=== PATIENT | male | born 2005 | race Hispanic/Latino ===

== ENCOUNTER 2023-12-06 15:54 | Emergency (ER) | payer MEDICAID, OTHER, SELFPAY ==
[2023-12-06 16:26] VITALS: BP 135/81; PULSE 105; RESP 20; TEMP 37.4; O2SAT 96; BMI 36.6
--- NOTE | 2023-12-06 16:45 | ED_ITS ---
<Statement entered by Brad Sterling DO - 12/07/23 07:03> Dr. Sterling: I was immediately available in the department for consultation. Documentation has been reviewed. I agree with assessment and plan. HPI - URI/Sore Throat General Chief Complaint: Upper Respiratory Symptoms Stated Complaint: bronchitis t-4 Time Seen by Provider: 12/06/23 16:44 Source: patient Mode of arrival: Ambulatory History of Present Illness HPI Narrative: 18-year-old male with no reported past medical history presents to the ED with 4 days of a productive cough, green sputum. Patient states that he has several members in his family at home with bronchitis or pneumonia. Patient also complains of overall myalgias. No fever, chills, chest pain, shortness of breath, sore throat, rhinorrhea, nausea, vomiting, abdominal pain. Related Data Previous Rx's Medication Instructions Recorded albuterol sulfate 90 mcg/actuation 2 puff inhalation Q4-6H PRN 12/06/23 aerosol inhaler shortness of breath or wheezing #6.7 grams azithromycin 250 mg tablet See Rx Instructions PO .COMPLEX #6 12/06/23 (Zithromax Z-Sony) tabs Allergies Allergy/AdvReac Type Severity Reaction Status Date / Time No Known Drug Allergies Allergy Verified 12/06/23 16:26 Review of Systems Constitutional Constitutional: Reports body ache(s), Denies chills, Denies fatigue, Denies fever(s), Denies frequent falls, Denies lethargy and Denies weakness Eyes Eyes: Denies change in vision, Denies eye discharge, Denies irritation and Denies loss of vision ENT Ears, Nose, Mouth, and Throat: Denies change in voice, Denies dizziness, Denies neck pain, Denies sore throat and Denies throat swelling Cardiovascular Cardiovascular: Denies chest pain, Denies irregular heart rhythm, Denies lightheadedness, Denies palpitations, Denies dyspnea, Denies dyspnea on exertion and Denies orthopnea Respiratory Respiratory: Reports cough, Denies dyspnea, Denies dyspnea on exertion and Denies wheezing Gastrointestinal Gastrointestinal: Denies abdominal pain, Denies change in bowel habits, Denies diarrhea, Denies nausea and Denies vomiting Musculoskeletal Musculoskeletal: Denies neck pain and Denies numbness Integumentary/Breasts Skin/Breast: Denies pruritus, Denies erythema, Denies rash and Denies wounds Neurologic Neurologic: Denies behavioral changes, Denies confusion, Denies dizziness, Denies frequent falls, Denies loss of vision, Denies numbness and Denies weakness Psychiatric Psychiatric: Denies anxiety, Denies behavioral changes, Denies confusion, Denies depression, Denies homicidal ideation and Denies suicidal ideation Endocrine Endocrine: Denies fatigue, Denies flushing and Denies palpitations Hematologic/Lymphatic Hematologic/Lymphatic: Denies easy bruising Allergic/Immunologic Allergic/Immunologic: Denies urticaria, Denies throat swelling and Denies wheezing Patient History Social History Smoking Status: Never smoker Smoking Status: Never smoker Substance Use Type: does not use Exam Narrative Exam Narrative: Const General:?cooperative, healthy appearing and comfortable [facility] Head:?normal to inspection Ears:?hearing grossly normal bilaterally Nose:?external nose normal Face and sinus:?normal facial exam and sinuses nontender Mouth:?oral mucosae normal Throat:?posterior oropharynx normal Eyes General:?appearance normal, both eyes and all related structures Neck Neck:?normal visual inspection and no lymphadenopathy noted Resp Effort & Inspection:?normal respiratory effort Auscultation:? Generalized wheezes, coarse crackles Cardio Rate:? Tachycardic Rhythm:?regular rhythm Neuro General:?patient alert, patient awake and patient oriented x3 Initial Vital Signs Initial Vital Signs: Vital Signs Temperature 99.4 F 12/06/23 16:26 Pulse Rate 105 H 12/06/23 16:26 Respiratory Rate 20 12/06/23 16:26 Blood Pressure 135/81 12/06/23 16:26 Pulse Oximetry 96 12/06/23 16:26 Oxygen Delivery Method Room Air 12/06/23 16:26 Course Orders Ordered: ED Orders 12/06/23 17:03 CXR [XR chest 2V] Stat 12/06/23 17:05 Covid-19 + FLU A/B + RSV - PCR Stat 12/06/23 17:28 RT Consult Eval and Treat NOW Discontinued Medications Albuterol (Albuterol 2.5 Mg/3 Ml Neb (Adult)) 2.5 mg INH [id number] PRN PRN Reason: Shortness Of Breath Last Admin: 12/06/23 17:49 Dose: 2.5 mg Documented By: SAT Ibuprofen (Ibuprofen 400 Mg Tablet) 800 mg PO NOW ONE Stop: 12/06/23 17:07 Last Admin: 12/06/23 17:16 Dose: 800 mg Documented By: KATHERINE Vital Signs Vital signs: Vital Signs - 8 hr 12/06/23 16:26 12/06/23 18:37 Temperature 99.4 F 98.6 F Pulse Rate 105 H 100 H Respiratory Rate 20 22 Blood Pressure 135/81 130/85 Pulse Oximetry 96 97 Oxygen Delivery Method Room Air Room Air MDM - URI/Sore Throat Lab Data Labs: Lab Results 12/06/23 Range/Units 17:05 SARS-CoV-2 (PCR) Negative (Negative) Influenza A (RT-PCR) Flu a negative (NEGATIVE) Influenza B (RT-PCR) Flu b negative (NEGATIVE) RSV (PCR) Negative (Negative) MDM Narrative Medical decision making narrative: 18-year-old male with no reported past medical history presents to the ED with 4 days of a productive cough, green sputum. Concern for URI versus pneumonia versus bronchitis versus other. Will obtain respiratory panel, chest x-ray. Ordered a breathing treatment, Tylenol. Will re-evaluate. Chest x-ray shows possible bilateral bibasilar pneumonia versus atelectasis. Will treat for pneumonia. Patient's wheezing improved with the breathing treatment. Also prescribed albuterol. Recommend ibuprofen, Tylenol for aches and pains, fever. ED return precautions discussed with patient. Patient verbalized understanding. Medical records reviewed: Yes Discharge Plan Departure Patient Disposition: Home Clinical Impression: Pneumonia Qualifiers: Pneumonia type: due to unspecified organism Laterality: bilateral Lung location: unspecified part of lung Qualified Code(s): J18.9 - Pneumonia, unspecified organism Instructions: DI for Pneumonia -- Adult Activity Restrictions/Additional Instructions: Were evaluated in the ED today for cough and congestion. Your chest x-ray shows possible pneumonia. You are being prescribed antibiotics for this. You were also being prescribed albuterol which is an inhaler that will help wheezing. You may take Tylenol and ibuprofen for fever, aches and pains. Return to the ED if you have worsening symptoms. Prescriptions: New azithromycin [Zithromax Z-Sony] 250 mg tablet See Rx Instructions .ROUTE .COMPLEX Qty: 6 0RF Rx Instructions: For 250 mg dose pack: take 500 mg today (day 1), then 250 mg for 4 days (days 2-5) albuterol sulfate 90 mcg/actuation HFA aerosol inhaler 2 puff inhalation Q4-6H PRN (Reason: shortness of breath or wheezing) Qty: 6 .7 0RF Stand Alone Forms: Patient Portal/API
--- NOTE | 2023-12-06 17:03 | DI.RAD.S_ITS ---
PROCEDURE: XR CHEST 2V INDICATIONS: ?pna TECHNIQUE: 2 views of the chest were acquired. COMPARISON: None. FINDINGS: Surgical changes and devices: None. Lungs and pleura: Minimal patchy bibasilar densities may be atelectasis versus infiltrates. No pleural effusions or pneumothorax. Mediastinum: Mediastinal contours are normal. Heart size is normal. Bones and chest wall: No suspicious bony abnormalities. Soft tissues appear unremarkable. IMPRESSION: Minimal patchy bibasilar densities may be atelectasis versus infiltrates. Comment: Progress films are recommended until clear. Dictated by: Bethel Villeda M.D. on 12/06/2023 at 17:35 Approved by: Bethel Villeda M.D. on 12/06/2023 at 17:36
[2023-12-06] MEDS: IBUPROFEN 400 MG TABLET 800 MG PO (17:16)
[2023-12-06] MEDS: ALBUTEROL 2.5 MG/3 ML NEB (ADULT) INH (17:49)
[2023-12-06 18:16] LABS: COVID-19 CEPHEID 4-PLEX PCR Negative (Negative); Influenza A - CEPHEID Flu A NEGATIVE (NEGATIVE); Influenza B - CEPHEID Flu B NEGATIVE (NEGATIVE); Respiratory Syncytial Virus Negative (Negative)
[2023-12-06 18:37] VITALS: BP 130/85; PULSE 100; RESP 22; TEMP 37; O2SAT 97
== END 2023-12-06 18:39 | disposition home or self-care (01) ==
PROVIDERS: Emergency Provider Student in an Organized Health Care Education/Training Program
DX: J18.9 Pneumonia, unspecified organism (principal)
CPT/HCPCS: 87635; 87400; 87420; 0241U; 71046; 99283; 99284; J7613